=== PATIENT | female | born 1960 | race Caucasian/White ===

== ENCOUNTER 2016-09-29 14:11 | Outpatient (CLI) ==
[2015-05-22 19:38] VITALS: BMI 34.5
[2016-09-29 14:40] LABS: CREATININE 0.86 mg/dL (0.60-1.30)
== END 2016-09-29 14:12 | disposition home or self-care (01) ==
LOC: LAB 14:11
PROVIDERS: ATTEND Internal Medicine
DX: Z01.812 Encounter for preprocedural laboratory examination (principal)
CPT/HCPCS: 36415; 82565

== ENCOUNTER 2016-10-03 07:51 | Outpatient (CLI) ==
[2015-05-22 19:38] VITALS: BMI 34.5
--- NOTE | 2016-10-03 09:35 | CT ---
EXAM: CT ABDOMEN AND PELVIS HISTORY: Ventral hernia TECHNIQUE: CT abdomen and pelvis with intravenous contrast. Images were reconstructed using 5 mm se ction thickness. Reformations were prepared. FINDINGS: Compared to 07/23/2013. No focal hepatic or splenic lesions. Gallbladder is absent. Pancreas and right adrenal gland are n ormal. Slight nodularity to the left adrenal gland is stable. Normal enhancement of the kidneys wi thout hydronephrosis. Severe atherosclerotic disease is present with multilevel hemodynamically sign ificant vascular stenosis likely. Unremarkable stomach. Appendix has been removed. Normal bowel gas pattern. Uterus and urinary marivel dder within normal limits. There is no ascites or inflammatory infiltration of the abdominal fat. Ventral abdominal wall demonstrates a fatty hernia which is at or minimally above the level of the u mbilicus having a transverse neck of 3.8 cm and a subcutaneous fatty sac measuring about 8.5 x 4.9 x 6.0 cm. The ventral abdominal wall is otherwise intact. Bones are within normal limits. Lung bas es are free of acute infiltrate. No pneumoperitoneum. IMPRESSION: 1. Ventral abdominal wall demonstrates a fatty hernia which is at or minimally above the level of t he umbilicus having a transverse neck of 3.8 cm and a subcutaneous fatty sac measuring about 8.5 x 4 .9 x 6.0 cm. The ventral abdominal wall is otherwise intact. 2. Severe atherosclerotic disease is present with multilevel hemodynamically significant vascular s tenosis likely. 3. Slight nodularity of the left adrenal gland is stable.
== END 2016-10-03 07:52 | disposition home or self-care (01) ==
LOC: RAD 07:51
PROVIDERS: ATTEND Internal Medicine
DX: K43.9 Ventral hernia without obstruction or gangrene (principal)

== ENCOUNTER 2017-04-24 14:29 | Outpatient (CLI) ==
[2015-05-22 19:38] VITALS: BMI 34.5
== END 2017-04-24 14:30 | disposition home or self-care (01) ==
LOC: RAD 14:29
PROVIDERS: ATTEND Internal Medicine
DX: Z12.31 Encounter for screening mammogram for malignant neoplasm of breast (principal)
CPT/HCPCS: 77067